=== PATIENT | female | born 2000 | race Caucasian/White ===

== ENCOUNTER 2023-12-20 22:15 | Emergency (ER) | payer OTHER, SELFPAY ==
[2023-12-20 22:48] VITALS: BP 116/69; PULSE 64; RESP 18; TEMP 36.6; O2SAT 97; BMI 26.5
--- NOTE | 2023-12-21 01:07 | ED_ITS ---
HPI - General Adult General Chief complaint: Laceration/Wound Stated complaint: right elbow lac Time Seen by Provider: 12/21/23 00:43 Source: patient Mode of arrival: ambulatory History of Present Illness HPI narrative: 23-year-old female presents the emergency department for evaluation of laceration to the elbow tonight, a few hours prior to arrival.. Fell onto the ice, laceration over the right olecranon while playing hockey this evening in [place]. 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 product trainer applied some Steri- Strips but unfortunately it is still seeping and oozing somewhat. No significant pain with flexion or extension of the elbow. Does not use any anticoagulants. Did not hit head, no other areas of injury. This happen in the . And she did continue to play the rest of the game. No prior surgery to this area. States her past medical history is relatively benign. Zoloft only home medication, no allergies. She does not know when her last Tdap was. She is also unsure if it was updated prior to going off to college. She did have her routine childhood vaccines but that would of been at 13 or 14, indicating that she is probably due for a Tdap. Her phone has and she is unable to pull up her my chart to verify. Remainder past medical history reviewed, benign. ROS is negative for other generalized, musculoskeletal, neurological or skin changes. Related Data Home Medications ?Medication ?Instructions ?Recorded ?Confirmed sertraline 100 mg tablet (Zoloft) 100 mg PO DAILY 12/20/23 12/20/23 Allergies Allergy/AdvReac Type Severity Reaction Status Date / Time No Known Drug Allergies Allergy Verified 12/20/23 22:53 Exam Const: Vital Signs, click to edit/add: Vital Signs - 24 hr 12/20/23 22:48 Temperature 97.9 F Pulse Rate [Right Pulse Oximeter] 64 Respiratory Rate 18 Blood Pressure [Ri ght Upper Arm] 116/69 Pulse Oximetry 97 Oxygen Delivery Me thod Room Air Documenting provider has reviewed patient's vital signs: yes Common normals: no apparent distress General appearance: cooperative and comfortable HENMT: Common normals: normocephalic Head and scalp: normocephalic Face and sinus: normal facial exam Eye: General eye: normal appearance of both eyes Resp: Common normals: normal respiratory effort Effort & inspection: able to speak in complete sentences Extremity: Other: Right arm with normal range of motion at shoulder, wrist elbow and hand. No point bony tenderness to right elbow at either condyle, tip of the olecranon or radial head. Can fully extend with no difficulty. Some tenderness with flexion but only at the tip of the olecranon where the laceration is. Can supinate and pronate with no difficulty. Normal movement and hand. Normal sensation. 1.5 cm horizontal laceration over the tip of the olecranon, dermal depth. No soft t issue involvement. Slight oozing. Gapes with movement of elbow. Psych: Activity/motor behavior: appropriate eye contact Mood and affect: euthymic mood Insight: insight good Judgement: judgment good Skin: Narrative: No other areas of injury besides the small laceration on olecranon. Course Course ED Course: No evidence of major fracture within the joint space. Cannot exclude a tiny chip fracture on the olecranon. Discussed with patient that this really would not change our management. The cut does not go into the joint capsule, it really is fairly superficial. I do not think x-ray will help us manage. She does not seem to need antibiotics. Rationale discussed. With this information, she is in agreement that x-ray would not seem beneficial. Wound is cleansed with soapy tap water and patted dry. No evidence of foreign body seen. Options for repair discussed. Because of the gaping intention directly over the joint with movement, recommended suture. Laceration repair: Cleansed with soap and tap water, pat it dry. 2 mL of 1% lidocaine with epinephrine were injected with good anesthesia. One horizontal mattress suture and 1 simple interrupted suture of 4-0 Monocryl used to reapproximate wound edges with good hemostasis and reapproximation. Well francisco ated. Covered in antibiotic ointment and Band-Aid. Instructed on wound care. No shower for 8 hours, then may remove dressing and shower as usual, allowing soapy water to run over the wound but no aggressive scrubbing. Pat dry, cover with antibiotic ointment in fresh Band-Aid, changing daily. Suture removal in 10 days. Okay for product trainer to do this. There are 3 stitches but only 2 knots, this was discussed. Clinic visit if needed. Alarm symptoms are reviewed. All questions answered, written instructions provided. Tetanus updated. Counseled on [id number] Tylenol and ibuprofen if needed. Cleared to return to sports with wound covered. Vital Signs Vital signs: Initial Vital Signs Temperature 97.9 F 12/20/23 22:48 Temperature Source Temporal Artery Scan 12/20/23 22:48 Pulse Rate 64 12/20/23 22:48 Respiratory Rate 18 12/20/23 22:48 Blood Pressure 116/69 12/20/23 22:48 Blood Pressure Mean 84 12/20/23 22:48 Blood Pressure Position Sitting 12/20/23 22:48 Pulse Oximetry 97 12/20/23 22:48 Oxygen Delivery Method Room Air 12/20/23 22:48 Vital Signs Temperature 97.9 F 12/20/23 22:48 Pulse Rate 64 12/20/23 22:48 Respiratory Rate 18 12/20/23 22:48 Blood Pressure 116/69 12/20/23 22:48 Pulse Oximetry 97 12/20/23 22:48 Oxygen Delivery Method Room Air 12/20/23 22:48 Temperature 97.9 F 12/20/23 22:48 Pulse Rate 64 12/20/23 22:48 Respiratory Rate 18 12/20/23 22:48 Blood Pressure 116/69 12/20/23 22:48 Pulse Oximetry 97 12/20/23 22:48 Oxygen Delivery Method Room Air 12/20/23 22:48 Discharge Plan Discharge Clinical Impression: Laceration Patient Disposition: Home w/ Parent or Adult Condition: Improved Instructions: Laceration (DC) Additional Instructions: The laceration year old boy was closed with 3 stitches, but only 2 not need to be removed. You can make an appointment to have this done in the clinic or the product trainer may remove them. No shower for 8 hours. After 9:00 a.m., you may gently remove the dressing that is in place, shower as usual, trying not to hyper bend the elbow if possible. It is okay if soapy water run over the wound but do not aggressively scrubbed. Once fully dry, apply antibiotic ointment and a fresh Band-Aid. Change the dressing daily. Have the stitches removed in about 10 days. This does not need oral antibiotics. Antibiotic ointment is sufficient. We updated your tetanus shot today, this will be good for 10 more years. If any signs of severe infection, difficulty moving the elbow, severe pain, have this re-evaluated in the clinic. We discussed the risks and benefits of doing x-ray. There did not seem to be any major injuries that would affect the joint. Therefore x-ray was not recommended. I cannot exclude a tiny chip fracture on the tip of the olecranon, but there really is nothing to do with this. You were in agreement. It is okay to do [id number] pain medications like Tylenol 1000 mg every 6 hours and/or ibuprofen 600 mg every 6 hours if needed. You may return to sports unrestricted with the wound covered. Activity Level: Activity as Tolerated Discharge Diet: Regular Prescriptions: No Action sertraline [Zoloft] 100 mg tablet 100 mg PO DAILY Stand Alone Forms: [employer] Info Instructions
[2023-12-21] MEDS: TETANUS-DIPHTHERIA TOXOIDS/PF 0.5 ML SYRINGE IM (01:39)
== END 2023-12-21 01:46 | disposition home or self-care (01) ==
PROVIDERS: Emergency Provider Family Medicine
DX: S51.011A Laceration without foreign body of right elbow, initial encounter (principal); Y93.22 Activity, ice hockey; Z23 Encounter for immunization
CPT/HCPCS: 12001; 90471; 90714; 99283